=== PATIENT | female | born 1985 | race Caucasian/White ===

== ENCOUNTER 2021-07-26 15:28 | Emergency (ER) | payer MEDICAID ==
[~2021-07-26] VITALS: Ht 175.3 cm; Wt 63.6 kg
[2021-07-26] MEDS ORDERED: CASIRIVIMAB/IMDEVIMAB inject. 10 ML in normal saline 100ml IV soln 100 ML IV ONE (15:55)
[2021-07-26] MEDS ORDERED: normal saline 1000ML IV soln IVB ONE (16:00)
[2021-07-26] MEDS ORDERED: ondansetron/PF 4mg/2ml inj IV ONE (16:00)
[2021-07-26] MEDS ORDERED: BAMLANIVIMAB 700MG, ETESEVIMAB 1,400MG in NS 100mL (Total vol 160ml) IV ONE (16:05)
[2021-07-26] MEDS ORDERED: ALBU6.7H9 INH (17:02)
[2021-07-26] MEDS ORDERED: ONDA4TAB6 PO (17:02)
[2021-07-26 19:07] VITALS: BP 126/87
== END 2021-07-26 19:10 | disposition home or self-care (01) ==
LOC: ER 15:29
DX: U07.1 COVID-19 (principal); R42 Dizziness and giddiness; R19.7 Diarrhea, unspecified; R11.2 Nausea with vomiting, unspecified; G89.29 Other chronic pain; F17.200 Nicotine dependence, unspecified, uncomplicated; Z88.6 Allergy status to analgesic agent; Z88.8 Allergy status to other drugs, medicaments and biological substances; Z79.899 Other long term (current) drug therapy
CPT/HCPCS: 71045; 96374; 99283; J2405; J7030

== ENCOUNTER 2021-10-07 05:28 | Emergency (ER) | payer MEDICAID ==
[~2021-10-07] VITALS: Ht 175.3 cm; Wt 61.4 kg
[~2021-10-07 05:28] MED LIST: ALBU6.7H9 INH; ONDA4TAB6 PO
[2021-10-07 05:30] VITALS: BP 136/81
[2021-10-07] MEDS ORDERED: LIDOcaine 1% W/epiNEPHrine 1:200,000 10ml vial IJ ONE (06:25)
[2021-10-07] MEDS ORDERED: LIDOcaine/epinephrine/tetracaine TOPICAL sol 3 ML syringe TOP ONE (06:25)
[2021-10-07] MEDS ORDERED: bacitracin 15gm ointment TP ONE (06:25)
[2021-10-07] MEDS ORDERED: TETanus/Pertussis (Acell)/Diphther VAC/PF (Tdap-Adult) 0.5ml syringe IMVAC ONE (06:25)
[2021-10-07] MEDS ORDERED: LIDOcaine 1% W/epiNEPHrine 1:100,000 20ml vial IJ ONE (06:35)
[2021-10-07] MEDS ORDERED: cephalexin 250mg capsule PO ONE (07:10)
[2021-10-07] MEDS ORDERED: ibuprofen tablet 400 MG TABLET PO ONE (07:10)
[2021-10-07] MEDS ORDERED: CEPH-585 PO (08:30)
[2021-10-07] MEDS ORDERED: acetaminophen 325mg tablet PO ONE (08:35)
== END 2021-10-07 10:18 | disposition home or self-care (01) ==
LOC: ER 05:29
DX: S91.312A Laceration without foreign body, left foot, initial encounter (principal); G89.29 Other chronic pain; Z88.6 Allergy status to analgesic agent; Z88.8 Allergy status to other drugs, medicaments and biological substances; Z79.2 Long term (current) use of antibiotics; Z79.899 Other long term (current) drug therapy; Z20.3 Contact with and (suspected) exposure to rabies; W22.8XXA Striking against or struck by other objects, initial encounter; Y93.89 Activity, other specified; Y92.89 Other specified places as the place of occurrence of the external cause; Y99.8 Other external cause status
CPT/HCPCS: 12001; 73630; 90471; 90715; 99284

== ENCOUNTER 2024-12-21 12:23 | Emergency (ER) | payer SELFPAY ==
[~2024-12-21] VITALS: Ht 175.3 cm; Wt 66.2 kg
[~2024-12-21 12:23] MED LIST changes: +ALBU6.7H14 INH; -ALBU6.7H9 INH
[2024-12-21 12:32] VITALS: BP 119/84
[2024-12-21] MEDS: dexamethasone sod phosphate 10mg/ml inj IM STA (12:51)
[2024-12-21] MEDS: ketorolac trometh 30MG/ML vial 30 MG/ML VIAL IM ONE (12:51)
[2024-12-21] MEDS ORDERED: PROM25TA14 PO (14:49)
[2024-12-21] MEDS ORDERED: PRED20TA PO (14:49)
[2024-12-21] MEDS ORDERED: ACET-3068 PO (14:49)
[2024-12-21] MEDS ORDERED: ALBU8HFA INH (14:49)
[2024-12-21 15:13] VITALS: PULSE 81; RESP 16; O2SAT 100
[2024-12-21] MEDS: ipratropium/albuterol 3ml nebule NEB STA (15:13)
[2024-12-21 15:28] VITALS: PULSE 96; RESP 16; O2SAT 100
[2024-12-21 15:37] VITALS: TEMP 97.9
== END 2024-12-21 15:39 | disposition home or self-care (01) ==
LOC: ER 12:23
DX: B34.9 Viral infection, unspecified (principal); J06.9 Acute upper respiratory infection, unspecified; Z88.8 Allergy status to other drugs, medicaments and biological substances; M79.10 Myalgia, unspecified site; Z20.822 Contact with and (suspected) exposure to COVID-19
CPT/HCPCS: 36415; 71045; 87811; 94640; 96372; 99284; J1100; J1885; 94760